=== PATIENT | female | born 2000 | race Caucasian/White ===

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

== ENCOUNTER → 2019-05-11 | Outpatient (CLI) | payer BC | LOC: OD 15:05 | PROVIDERS: ATTEND Pediatrics | DX: Z02.5 Encounter for examination for participation in sport (principal) | CPT/HCPCS: 36415; 85660 ==